=== PATIENT | female | born 1945 | race Caucasian/White ===

== ENCOUNTER 2017-07-27 06:20 | Emergency (ER) | payer OTHER ==
[~2017-07-27] VITALS: Ht 154.9 cm; Wt 62.1 kg
[~2017-07-27 06:20] MED LIST: EXCEDRIN1 TABLET PO
[2017-07-27 07:28] LABS: ADD MIUA? YES; BILIRUBIN NEGATIVE; BLOOD SMALL; COLOR STRAW ((YELLOW)); GLUCOSE (STRIP) NEGATIVE; KETONES NEGATIVE; LEUKOCYTES NEGATIVE; NITRITE NEGATIVE; PROTEIN (STRIP) NEGATIVE; SPECIFIC GRAVITY 1.006 (1.000-1.030); UROBILINOGEN 0.2 MG/DL (0.2-1.0)
[2017-07-27 07:52] LABS: BACTERIA NONE SEEN /HPF; EPITHELIAL CELLS RARE /HPF; MUCUS NONE SEEN /LPF; RED BLOOD CELLS 0-5 /HPF (0-5); UCUL ADDED? NO; WHITE BLOOD CELLS 0-5 /HPF (0-5)
[2017-07-27 07:59] LABS: HEMATOCRIT 38.5 % (36.0-46.0); MCH 29.5 PG (29.0-34.0); MCHC 32.5 G/DL (30.0-36.0); MCV 90.8 FL (83-99); MEAN PLAT.VOLUME 9.9 uM^3 (9.5-12.4); PLATELET COUNT 277 K/uL (156-360); RBC DIS.WIDTH-CV 12.8 % (11.8-14.6); RBC DIS.WIDTH-SD 42.3 % (39-53); RED BLOOD COUNT 4.24 M/uL (3.80-5.20); WHITE BLOOD COUNT 11.5 K/uL (4.1-10.2)
[2017-07-27 08:16] LABS: ANION GAP 11 MEQ/L (2-14); CHLORIDE 105 MEQ/L (99-109); SAMPLE HEMOLYSIS CHECK 0; SAMPLE ICTERIC CHECK 0; SAMPLE LIPEMIA CHECK 0; SODIUM 142 MEQ/L (136-147); TOTAL BILIRUBIN 0.4 MG/DL (0.0-1.0)
[2017-07-27 08:22] LABS: ALKALINE PHOSPHATASE 85 IU/L (3-129); GFR ESTIMATE (CALCULATED) > 59 mL/min/; GLUCOSE 120 mg/dL (70-99); LIPASE 9 U/L (1.0-51.0); UREA NITROGEN (BUN) 17 mg/dL (9-23)
[2017-07-27] MEDS ORDERED: FLAGYL500 MG PO (09:26)
[2017-07-27] MEDS ORDERED: CIPRO500 MG PO (09:26)
[2017-07-27] MEDS ORDERED: ZOFRAN ODT4 MG PO (09:26)
[2017-07-27] MEDS ORDERED: MOTRIN600 MG PO (09:26)
[2017-07-27 09:40] VITALS: BP 114/78
== END 2017-07-27 10:02 | disposition home or self-care (01) ==
LOC: EME 06:20
PROVIDERS: Nurse Practitioner Family
DX: K57.92 Diverticulitis of intestine, part unspecified, without perforation or abscess without bleeding (principal); J44.9 Chronic obstructive pulmonary disease, unspecified; F41.9 Anxiety disorder, unspecified; Z87.891 Personal history of nicotine dependence
CPT/HCPCS: 71020; 74177; 80053; 81003; 83690; 85027; 87502; 94640; 99281; 99285